=== PATIENT | female | born 1970 | race Caucasian/White ===

== ENCOUNTER 2018-07-26 06:55 | Day surgery (SDC) | payer OTHER ==
[~2018-07-26] VITALS: Ht 160 cm; Wt 93.9 kg
[~2018-07-26 06:55] MED LIST: ALLERGY10 MG PO; ALPRAZOLAM0.5 MG PO; CITALOPRAM HBR40 MG PO; OMEPRAZOLE20 MG PO; VITAMIN D32000 UNI1 PO; WELLBUTRIN XL150 MG PO
--- NOTE | 2018-07-26 11:32 | NUR ---
07/26/18 1132 Sheets,Radha 1111 PT ARRIVED TO PACU AND IS ENCOURAGED TO DEEP BREATHE AND COUGH. PT SITTING IN HIGH FOLWERS AND ABLE TO FOLLOW COMMANDS. O2 INCREASING. RESP EVEN AND UNLABORED. O2 INCREASE TO 97%. 1119 O2 MASK REMOVED. 1124 O2 TO 89% AND NC PLACED AT 2L, PT ENCOURAGED TO DEEP BREATH, PILLOW IN PLACE ON ABD AND PT EDUCATION GIVEN ON BRACING ABD.
--- NOTE | 2018-07-26 12:12 | NUR ---
PT ARRIVES TO DS TREATMENT ROOM FROM PACU, DROWSY BUT EASILY AROUSABLE BY VERBAL STIMULI. PT ON 2L O2 VIA NC, SATS ABOVE 94% WITH EVEN, UNLABORED RESP. PT DENIES ANY NAUSEA AND STATES PAIN IS "TOLERABLE" RATING IT A 4 OR 5/10. PT SPOUSE IN RM AT BEDSIDE. PT PROVIDED ICED WATER AND PUDDING. PT TOLERATES SMALL SIPS OF WATER. CALL LIGHT WITHIN REACH.
--- NOTE | 2018-07-26 12:40 | NUR ---
1220: NO MD ORDERS ON PT. DR. COLMENARES NOTIFIED AND ORDERS RECIEVED, TORB. ORDERS FAXED TO PHARMACY AND ENTERED INTO [place]. 1240: PT PROVIDED PUDDING IN ANTICIPATION FOR ORAL PAIN MEDICATION.
[2018-07-26] MEDS ORDERED: NORCO 10-325 T1 EACH PO (12:50)
--- NOTE | 2018-07-26 13:01 | NUR ---
PT CONT TO REST IN BED. RESP EVEN AND UNLABORED BUT SHALLOW. PT ENCOURAGED TO TAKE NICE DEEP BREATHS. SATS ABOVE 94% ON RA. PT STATES SHE IS "STARTING TO HURT" IN ABD AND RATES PAIN /10. PT MEDICATED FOR PAIN, SEE EMAR. PT SPOUSE REMAINS AT BEDSIDE. CALL LIGHT WITHIN REACH.
--- NOTE | 2018-07-26 13:56 | NUR ---
1345: PT TOLERATES ORAL PAIN MEDICATION, MEDICATED WITH FULL DOSE SEE EMAR. PT HAS URGE TO VOID. PT SLOWLY CHANGES POSITION TO SITTING AT SIDE OF BED. PT DENIES ANY DIZZINESS OR NAUSEA. PT STANDS AT SIDE OF BED THEN AMBULATES TO BATHROOM WITH RN ASSIST, STEADY ON FEET. PT ABLE TO VOID QS WITH NO PROBLEMS. PT BACK IN BED WITH SCD'S IN PLACE, CALL LIGHT WITHIN REACH.
--- NOTE | 2018-07-30 08:57 | OR ---
[facility] [address], [place] [address] Signed DATE OF OPERATION: SURGEON: Brit Colmenares MD PREOPERATIVE DIAGNOSIS: Chronic cholecystitis. POSTOPERATIVE DIAGNOSES: 1. Chronic cholecystitis. 2. 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 PROCEDURE: Laparoscopic cholecystectomy with intraoperative cholangiogram. ESTIMATED BLOOD LOSS: None. FINDINGS: The intraoperative cholangiogram was unremarkable. We could see the cholesterolosis through the wall of the gallbladder. Once the gallbladder was opened on the back table, it was very obvious. She has moderate to severe cholesterolosis. INDICATIONS: Sophia is a 48-year-old female with a body mass index of 36. She came with at least 30-45 days of terrible right upper quadrant abdominal pain radiating through to her back. It is associated with nausea and bloating. Her friend recognized that as gallbladder type pain. Sophia came to realize that most everyone in her family has had the gallbladders removed. Consequently, she went to her primary care provider. The ultrasound was negative. HIDA scan was performed and a gallbladder ejection fraction was fine at 68%. However, injection of the CCK reproduced her symptoms. She told me in the office it was quite miserable. In the office, I gave her a [employer] brochure on the gallbladder. We have discussed its location and function. We have discussed laparoscopic versus open cholecystectomy. She also understands expected intraop and postop course. There is risk of surgery including, but not limited to bleeding, infection, scarring, change in contour of the skin, damage to bowel, damage to the main bile duct, incisional hernias, and other unforeseen comorbidities. She had expressed understanding and wished to proceed. PROCEDURE NOTE: I had met with Sophia and her in our preop area. We reviewed her current course and answered all her questions. After this, Sophia was taken into our operating Electronically Signed By: BRIT COLMENARES MD 07/30/18 0857 PATIENT NAME: SOPHIA MENDOZA OPERATIVE REPORT DATE OF : 74 REPORT #: [id number] PHYSICIAN: BRIT COLMENARES MD PCP: ANNA MEDELLIN REPORT IS CONFIDENTIAL AND NOT TO BE RELEASED WITHOUT AUTHORIZATION [facility] [address], [place] [address] Signed room and placed in the supine position under general endotracheal tube anesthesia. She was given preoperative antibiotics along with subcutaneous heparin. SCDs were utilized. She was then prepped and draped in the usual sterile fashion. All trocars were placed in usual positions under direct visualization of camera without difficulty. Pictures were taken throughout for photodocumentation. The gallbladder was grasped and elevated in the right upper quadrant. The triangle of Calot was dissected free and 2 clips were placed across the cystic artery and it was divided. The intraoperative cholangiocatheter was inserted into the cystic duct. The intraoperative cholangiogram was performed. This was unremarkable. The contrast flowed readily into the duodenum and there were no filling defects. We did notice a yellow flake next to our intraoperative cholangiocatheter. Often this is cholesterol versus a very small stone. We then secured the cystic duct stump with a PDS Endoloop and 2 clips were placed across the cystic duct stump to callum its location. The gallbladder was then removed from the gallbladder fossa with the help of cautery and placed into an EndoCatch bag. The right upper quadrant was irrigated and suctioned out until clear. We used our laparoscopic suturing device to pass 0 Vicryl suture on either side of the fascia of the subxiphoid trocar site. This was tied down to close this fascia primarily. After this, all the gas was allowed to escape and the trocars were removed along with the gallbladder. The gallbladder was opened on the back table by our circulating nurse. Again, pictures were taken for photodocumentation. It was quite clear even from across the room that she had moderate to severe cholesterolosis. The fascia of the supraumbilical trocar site was closed with interrupted [id number] and simple 0 Vicryl sutures. Local anesthetic was copiously injected into all trocar sites. Each trocar site was irrigated and suctioned out until clear. The skin and dermis of each trocar site were closed with interrupted 3-0 subcuticular Monocryl sutures. Dry gauze and tape were applied to all incisions. After this, dry gauze and tape was applied to all incisions. She was awakened from her anesthesia, extubated in the OR, and taken to recovery room in stable condition. Brit Colmenares MD ALB/MODL /[id number] cc: Brit Colmenares MD Electronically Signed By: BRIT COLMENARES MD 07/30/18 0857 PATIENT NAME: SOPHIA MENDOZA OPERATIVE REPORT DATE OF : 74 REPORT #: [id number] PHYSICIAN: BRIT COLMENARES MD PCP: ANNA MEDELLIN REPORT IS CONFIDENTIAL AND NOT TO BE RELEASED WITHOUT AUTHORIZATION [facility] [address] [place] [place], [place] [address] Signed GLENN Hodges Copies: BRIT COLMENARES MD, LINDA PA ~ Electronically Signed By: BRIT COLMENARES MD 07/30/18 0857 PATIENT NAME: SOPHIA MENDOZA OPERATIVE REPORT DATE OF : 74 REPORT #: [id number] PHYSICIAN: BRIT COLMENARES MD PCP: ANNA MEDELLIN REPORT IS CONFIDENTIAL AND NOT TO BE RELEASED WITHOUT AUTHORIZATION
== END 2018-07-26 15:10 | disposition home or self-care (01) ==
LOC: DS 06:55
PROVIDERS: Colon & Rectal Surgery
PROC: BF13YZZ Fluoroscopy of Gallbladder and Bile Ducts using Other Contrast (ICD-10-PCS; 2018-07-26)
PROC: 0FT44ZZ Resection of Gallbladder, Percutaneous Endoscopic Approach (ICD-10-PCS; principal; 2018-07-26 08:45)
DX: K81.1 Chronic cholecystitis (principal); K21.9 Gastro-esophageal reflux disease without esophagitis; E78.5 Hyperlipidemia, unspecified; E66.9 Obesity, unspecified; F41.9 Anxiety disorder, unspecified; Z88.5 Allergy status to narcotic agent; Z88.6 Allergy status to analgesic agent; Z91.013 Allergy to seafood; Z91.041 Radiographic dye allergy status; Z79.899 Other long term (current) drug therapy; Z68.36 Body mass index [BMI] 36.0-36.9, adult
CPT/HCPCS: 00790; 74300; J0131; J0690; J1100; J1644; J2405; J2704; J2765; J3010; J7120; Q9967